=== PATIENT | male | born 1990 | race Caucasian/White ===

== ENCOUNTER 2019-08-09 01:21 | Emergency (ER) | payer SELFPAY ==
[~2019-08-09] VITALS: Ht 180.3 cm; Wt 133.0 kg
[2019-08-09] MEDS ORDERED: SULFAMETHOXAZOLE/TRIMETHOPRIM 800/160MG TABLET PO ONE (03:15)
[2019-08-09] MEDS ORDERED: CEPHALEXIN 250MG CAPSULE PO ONE (03:15)
[2019-08-09] MEDS ORDERED: IBUPROFEN 600MG TABLET PO ONE (03:15)
[2019-08-09 04:20] VITALS: BP 135/85
== END 2019-08-09 04:25 | disposition home or self-care (01) ==
LOC: ER 01:21
DX: L02.31 Cutaneous abscess of buttock (principal); I10 Essential (primary) hypertension
CPT/HCPCS: 10060; 99284